=== PATIENT | male | born 1945 | race Caucasian/White ===

== ENCOUNTER 2018-02-28 10:20 | Day surgery (SDC) | payer MEDICARE, BC ==
--- NOTE | 2018-02-28 07:17 | History and Physical Report ---
DATE: 02/28/18. CHIEF COMPLAINT AND HISTORY OF CHIEF COMPLAINT: This patient presents with a history of a postlaminectomy radiculopathy. He has an implanted spinal infusion device which is infusing morphine. Over the last number of refills and reprogrammings, battery depletion was identified. He is here for battery change. PAST MEDICAL HISTORY: Hypertension. PAST SURGICAL HISTORY: Lumbar laminectomy, shoulder surgery, bowel surgery, pump placement. MEDICATIONS ON ADMISSION: To be provided. ALLERGIES: Penicillin. SOCIAL HISTORY: Caffeine. EMPLOYMENT STATUS: Retired. FAMILY HISTORY: Coronary artery disease, hypertension, cancer. REVIEW OF SYSTEMS: The patient seems appropriate and in no acute distress. The remainder of the systems review shows glasses, blood pressure problems, cardiac and coronary artery disease, degenerative arthritis. PHYSICAL EXAMINATION: General: Height and weight are not available. Weight: Unavailable. Vital Signs: Unavailable. HEENT: Within normal limits. Lungs: Clear. Heart: Regular rate and rhythm. Abdomen: Nontender. Musculoskeletal: Examination of the musculoskeletal system shows the pump in the right posterior gluteal margin. The incisional site is intact. There is no breakdown or cellulitis. The underlying pain pattern is bilateral back, hips , and legs. The midline incision for laminectomy identified. Neurologic: Cranial nerves are intact. IMPRESSION: 1. POSTLUMBAR LAMINECTOMY SYNDROME, ICD-10 CODE M96.1. 2. RADICULOPATHY, ICD-10 CODE M54.16 AND M54.17. 3. IMPLANTED SPINAL OPIOID INFUSION SYSTEM WITH MORPHINE. PLAN: The patient is here for routine battery change. The procedure will be considered outpatient, although an overnight stay will be evaluated. The potential risks, side effects, and complications have been reviewed and discussed. JOB NUMBER: [id number] cc: Opal Velázquez
[~2018-02-28 10:20] MED LIST: ACETAMINOPHEN 1,000 MG/100 ML BTL IV ONE; CLINDAMYCIN 600MG/50ML PREMIX 600 MG/50 ML BAG IVPB ONE; FAMOTIDINE 20MG TABLET PO ONE; MECLIZINE 25 MG TABLET PO ONE; METOCLOPRAMIDE 10 MG TABLET PO ONE; MORPHINE SULFATE IV ONE; MORPHINE SULFATE/PF 0.05 MG in 0.9 % SODIUM CHLORIDE 10ML VIA 0.95 ML IV ONE; SODIUM CHLORIDE 0.9% IV ONE
[2018-02-28] MEDS ORDERED: LIDOCAINE 1% W/EPI 1:200,000 MPF 30ML SQ ONE (10:21)
[2018-02-28] MEDS ORDERED: FENTANYL PF 0.25MG/5ML AMPUL IV ONE (10:21)
[2018-02-28] MEDS ORDERED: CLINDAMYCIN (PEDIATRIC DOSING) 150 MG/ML VIAL IVPB ONE (10:21)
[2018-02-28] MEDS ORDERED: PROPOFOL 10 MG/ML VIAL IV ONE (10:21)
[2018-02-28] MEDS ORDERED: MIDAZOLAM HCL 2MG/2ML VIAL IV ONE (10:21)
[2018-02-28] MEDS ORDERED: BUPIVACAINE 0.5% W/EPI MPF 30 ML VIAL IVP ONE (10:21)
--- NOTE | 2018-03-01 20:24 | Operative Note - Ferro ---
DATE OF SURGERY: 02/28/18. PREOPERATIVE DIAGNOSES: 1. POST LUMBAR LAMINECTOMY SYNDROME, ICD-10 CODE = M96.1. 2. LUMBAR RADICULOPATHY, ICD-10 CODE = M54.16 AND M54.17. 3. IMPLANTED SPINAL OPIUM INFUSION SYSTEM MORPHINE WITH BATTERY DEPLETION. SURGERY: 1. FLUOROSCOPIC-GUIDED INCISION, SUBCUTANEOUS DISSECTION, AND REMOVAL AND REPLACEMENT OF PROGRAMMABLE PUMP AT RIGHT POSTERIOR GLUTEAL MARGIN. 2. FLUOROSCOPIC-GUIDED DIAGNOSTIC MYELOGRAPHY WITH RADIOLOGIC SUPERVISION AND INTERPRETATION. 3. PROGRAMMING OF PUMP TO DELIVER BY CONTINUOUS INFUSION MORPHINE AT 1.5 MG PER DAY. SURGEON: DUYEN MARRUFO D.O. ANESTHESIA: LOCAL SEDATION. ANESTHESIA PROVIDER: YASH BURTON CRNA. INDICATIONS: This patient presents with a history of a postlaminectomy radiculopathy. An intraspinal opioid infusion system infusing Morphine at 0.[address]. Over the last number of refills, battery depletion identified. He is here for battery replacement without parameter changes. SURGERY: Intravenous line, vital sign monitoring, IV sedation, prepped and draped, sterile technique. Patient positioned prone. The pump pouch at the right posterior superior gluteal margin was marked, prepped and draped sterile technique, skin infiltrated, Incision made and subcutaneous dissection was conducted to the pump pump pouch and the Dacron sleeve, which was opened and the pump exteriorized. The indwelling catheter was from the pump and a new pump placed onto the field, 20 mL programable prefilled Morphine at 15 mg per mL concentration. The pump was interfaced with the indwelling catheter. A curved #24 gauge Sifuentes needle was inserted into the access port and 1 mL of catheter contents was aspirated clearing the catheter of opioid and CSF mixture. The pump was then placed back into the pocket and secured to the posterior fascia with a nonabsorbable suture and then the incision was closed with Vicryl for fascia and a running subcuticular Vicryl for skin. Dermabond closure. The pump was then programmed to deliver by continuous infusion Morphine at 1.512 mg per day. He was transported stable with no side-effects from the procedure or the sedation. He was monitored until stable and then by his request prepared for discharge. DISCHARGE INSTRUCTIONS: 1. The site is to remain clean and dry. No showering or bathing in any way that would disrupt dressings. If it happens, contact the Clinic. 2. Standard medications resumed including Levaquin, the antibiotic, 500 mg once a day for 14 days. 3. The office will contact the patient at home to set up an appointment in 7 to 10 days to evaluate the site. Until then, his activities should stay relatively limited, limiting activities including bend, lift, push, pull. The Dermabond dressing should stay intact. If it comes off, he should contact the Clinic immediately for evaluation. All other instructions provided, numbers to contact if problems given. He was then discharged. cc: Dr. Austyn Parker JOB NUMBER: [id number] MTDD
== END 2018-02-28 15:00 | disposition home or self-care (01) ==
LOC: SUR 10:20
PROVIDERS: ATTEND Pain Medicine Interventional Pain Medicine
DX: M96.1 Postlaminectomy syndrome, not elsewhere classified (principal); M54.16 Radiculopathy, lumbar region; M54.17 Radiculopathy, lumbosacral region; J44.9 Chronic obstructive pulmonary disease, unspecified; I50.9 Heart failure, unspecified; I25.10 Atherosclerotic heart disease of native coronary artery without angina pectoris; E78.00 Pure hypercholesterolemia, unspecified; E03.9 Hypothyroidism, unspecified; I25.2 Old myocardial infarction
CPT/HCPCS: 62368; 85002